=== PATIENT | female | born 1990 | race African-American/Black ===

== ENCOUNTER 2016-07-14 12:47 | Emergency (ER) | payer OTHER ==
[~2016-07-14] VITALS: Ht 162.6 cm; Wt 65.0 kg
[2016-07-14 12:48] VITALS: BP 116/71; PULSE 72; RESP 15; TEMP 98.1; O2SAT 99
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
== END 2016-07-14 13:25 | disposition home or self-care (01) ==
LOC: NEPK 12:47
DX: T14.8 Other injury of unspecified body region (principal); M54.5 Low back pain; S70.02XA Contusion of left hip, initial encounter; V49.9XXA Car occupant (driver) (passenger) injured in unspecified traffic accident, initial encounter
CPT/HCPCS: 99283